=== PATIENT | female | born 1990 | race Caucasian/White ===

== ENCOUNTER 2017-02-14 07:58 | Emergency (ER) | payer OTHER ==
[~2017-02-14] VITALS: Ht 165.1 cm; Wt 104.3 kg
[2017-02-14 08:20] VITALS: BP 139/84
[2017-02-14] MEDS: ACETAMINOPHEN EXTRA STRENGTH 500 MG TAB PO ONE (09:05)
[2017-02-14 10:16] VITALS: BP 117/74
== END 2017-02-14 10:16 | disposition home or self-care (01) ==
LOC: MED 07:58
DX: R10.33 Periumbilical pain (principal)

== ENCOUNTER 2017-06-25 14:15 | Emergency (ER) | payer OTHER ==
[~2017-06-25] VITALS: Ht 165.1 cm; Wt 107.5 kg
[2017-06-25 15:00] VITALS: BP 126/85
--- NOTE | 2017-06-25 15:00 | NUR ---
PATIENT PRESENTS TO ED WITH C/O CHEST PAIN . PT STATES SHE WAS HAVING BREAKFAST WHEN THE PAIN STARTED. PATIENT DESCRIBES THE PAIN STABBING THAT RADIATED TO THE BACK . DENIES N/V/D; SKIN IS PINK/WARM/DRY; AAOX4 WITH EVEN AND STEADY GAIT; LUNGS CLEAR BL; HR EVEN AND REGULAR; PT DENIES ANY FEVER, SOB, OR COUGH AT THIS TIME; PATIENT STATES PAIN OF 8/10 AT THIS TIME; VSS; PATIENT POSITIONED FOR COMFORT; HOB ELEVATED; BEDRAILS UP X2; BED DOWN. ER MD MADE AWARE OF PT STATUS.
--- NOTE | 2017-06-25 15:07 | NUR ---
PT AMBULATES TO BED 3
[2017-06-25] MEDS: KETOROLAC 30 MG/ML VIAL IM ONE (16:07)
[2017-06-25 17:29] VITALS: BP 111/60
== END 2017-06-25 16:56 | disposition home or self-care (01) ==
LOC: MED 14:15
DX: M94.0 Chondrocostal junction syndrome [Tietze] (principal)
CPT/HCPCS: 71045; 93005; 96372; 99284; J1885; Q0092